=== PATIENT | female | born 1980 | race Caucasian/White ===

== ENCOUNTER 2017-03-22 20:04 | Emergency (ER) | payer SELFPAY ==
[~2017-03-22] VITALS: Ht 160 cm; Wt 63.1 kg
[~2017-03-22 20:04] MED LIST: AMOX500C PO
[2017-03-22 20:19] VITALS: BP 129/79; PULSE 58; RESP 16; TEMP 97.8; O2SAT 99
[2017-03-22 20:45] LABS: BLOOD, URINE SMALL (NEG); GLUCOSE,URINE NEG (NEG); KETONE, URINE NEG (NEG); NITRITE,URINE NEG (NEG)
[2017-03-22 20:53] LABS: URINE COLOR YELLOW (YELLW/STRAW)
[2017-03-22 20:56] LABS: COMMENT (UR) CULT NOT INDICATED; CULTURE IF INDICATED CULT NOT INDICATED; SQUAMOUS EPITHELIAL CELL URINE 0-5 /hpf (0-5)
[2017-03-22] MEDS ORDERED: METR-1 PO (21:19)
[2017-03-22] MEDS ORDERED: MACR100C2 PO (21:19)
--- NOTE | 2017-03-22 21:19 | PD ---
HPI Chief Complaint: Abdominal Pain Time Seen by Provider: 20:41 Travel History International Travel<30 days: No Contact w/Intl Traveler<30days: No Traveled to known affect area: No History of Present Illness HPI Patient is a 37-year-old female presents emergency primary for evaluation of dysuria as well as vaginal discharge for the past 2 weeks. Patient is been gradually worsening. She does relate a history that her boyfriend cheated on her in November and they've gone back together. She states that she did have some mild abdominal cramping but no true pain. She states she's been concerned because symptoms are gradually worsening and she had no primary care physician to follow up with. She has made an appointment with the [facility] for 2 weeks from now. Patient denies any diarrhea nausea or vomiting. Denies any fever. She states that she's had BV several times in the past and thinks that is come back. PFSH Past Medical History Reproductive: Yes (ENDOMETRIOSIS) Tetanus Vaccination: < 5 Years Influenza Vaccination: No ?: Not LMP: 03/09/17 : 1 Miscarriage: 1 Past Surgical History Appendectomy: Yes (1987) Gynecologic Surgery: Yes (TUMOR REMOVED RIGHT FALLOPIAN: 2004 VIA LAPARASCOPY) Social History Alcohol Use: Yes ("MINIMAL, ONCE EVERY 2 WEEKS") Tobacco Use: No (QUIT 2009) Substance Use: No Allergies-Medications (Allergen,Severity, Reaction): Coded Allergies: No Known Allergies (Unverified , 03/22/17) Reported Meds & Prescriptions Reported Meds & Active Scripts Active Flagyl (Metronidazole) 500 Mg Tab 500 Mg PO BID 7 Days Macrobid (Nitrofurantoin Monoh/Nitrofur Macro) 100 Mg Cap 100 Mg PO BID 3 Days Review of Systems Except as stated in HPI: all other systems reviewed are Neg Physical Exam Narrative GENERAL: Well-developed well-nourished no apparent distress SKIN: Focused skin assessment warm/dry. HEAD: Atraumatic. Normocephalic. EYES: Pupils equal and round. No scleral icterus. No injection or drainage. ENT: No nasal bleeding or discharge. Mucous membranes pink and moist. NECK: Trachea midline. No JVD. CARDIOVASCULAR: Regular rate and rhythm. No murmur appreciated. RESPIRATORY: No accessory muscle use. Clear to auscultation. Breath sounds equal bilaterally. GASTROINTESTINAL: Abdomen soft, non-tender, nondistended. Hepatic and splenic margins not palpable. GENITOURINARY: Exam was performed with female nurse pot sander present at all times, there is a small amount of white discharge with a slight tenting Green. No cervical motion tenderness no bimanual tenderness. No lesion internally or externally. MUSCULOSKELETAL: No obvious deformities. No clubbing. No cyanosis. No edema. NEUROLOGICAL: Awake and alert. No obvious cranial nerve deficits. Motor grossly within normal limits. Normal speech. PSYCHIATRIC: Appropriate mood and affect; insight and judgment normal. Data Data Last Documented VS Vital Signs Date Time Temp Pulse Resp B/P Pulse Ox O2 Delivery O2 Flow Rate FiO2 03/22/17 20:19 97.8 58 16 129/79 99 Orders Urinalysis - C+S If Indicated (03/22/17 20:09) Ed Urine Pregnancytest Poc (03/22/17 20:09) Wet Prep Profile (03/22/17 20:57) Gc And Chlamydia Pcr (03/22/17 20:57) Metronidazole (Flagyl) (03/22/17 21:30) Nitrofurantoin Monohyd Macrocr (Macrobid (03/22/17 21:30) Labs Laboratory Tests Test 03/22/17 03/22/17 20:25 20:47 Urine Color YELLOW Urine Turbidity CLEAR Urine pH 7.0 Urine Specific [place] 1.003 Urine Protein NEG mg/dL Urine Glucose (UA) NEG mg/dL Urine Ketones NEG mg/dL Urine Occult Blood SMALL Urine Nitrite NEG Urine Bilirubin NEG Urine Leukocyte Esterase SMALL Urine WBC 3-5 /hpf Urine Squamous Epithelial 0-5 /hpf Cells Microscopic Urinalysis Comment CULT NOT INDICATED Clue Cells (Wet Prep) PRESENT Vaginal Trichomonas (Wet Prep) NONE SEEN Vaginal Yeast (Wet Prep) NONE SEEN MDM Medical Decision Making Medical Screen Exam Complete: Yes Emergency Medical Condition: Yes Differential Diagnosis DVT, CVA, STD, UTI, torsion highly unlikely. Narrative Course Patient was roomed in the emergency department, she appears well in no apparent distress. Her exam is inconsistent with acute abdominal emergency. She does have some white discharge with a slight tint of green. Gonorrhea and chlamydia need consideration and appropriate is been sent. Patient does endorse Sectral activity with a partner who she knows has cheated on her. I discussed with her that her wet prep is positive for clue cells and needs treatment for BV is a minimum. Her UA is negative. Urine test is negative. She does have some dysuria will be covered on Macrobid and Flagyl. She was offered prophylactic treatment for GC and CT but she declines at this time after discussion the risk benefits competitions and alternatives. She will await for test results. [facility] and failing that she has an appointment with the health department as well. She stable for discharge at this time. Diagnosis Primary Impression: BV (bacterial vaginosis) Additional Impression: Dysuria Med/Other Pt SpecificInfo: Prescription(s) given Scripts Metronidazole (Flagyl)500 Mg [id number] Mg PO BID 7 Days Ref 0 Prov:Álvaro Carcamo MD 03/22/17 Nitrofurantoin Monohydrate Macrocrystals (Macrobid)100 Mg [id number] Mg PO BID 3 Days Ref 0 Prov:Álvaro Carcamo MD 03/22/17 Disposition: 01 DISCHARGE HOME Condition: Stable Álvaro Carcamo MD March 22, 2017 21:19
[2017-03-22] MEDS ORDERED: NITROFURANTOIN MONOHYD MACROCR 100 MG CAP PO ONE (21:30)
[2017-03-22] MEDS ORDERED: metroNIDAZOLE 500 MG TAB PO ONE (21:30)
[2017-03-23 01:32] LABS: CHLAMYDIA PCR NOT DETECTED (NOT DETECT); NEISSERIA PCR NOT DETECTED (NOT DETECT)
== END 2017-03-22 21:33 | disposition home or self-care (01) ==
LOC: PHED 20:04
DX: N76.0 Acute vaginitis (principal); R30.0 Dysuria; Z87.891 Personal history of nicotine dependence
CPT/HCPCS: 81001; 84703; 87210; 87491; 87591; 99284

== ENCOUNTER 2017-04-14 09:40 | Emergency (ER) | payer SELFPAY ==
[~2017-04-14] VITALS: Ht 160 cm; Wt 62.0 kg
[~2017-04-14 09:40] MED LIST changes: -AMOX500C PO; +MACR100C2 PO; +METR-1 PO
[2017-04-14 09:44] VITALS: BP 140/87; PULSE 81; RESP 16; TEMP 98; O2SAT 100
[2017-04-14 09:53] LABS: BLOOD, URINE LARGE (NEG); GLUCOSE,URINE NEG (NEG); KETONE, URINE NEG (NEG); NITRITE,URINE NEG (NEG)
--- NOTE | 2017-04-14 09:56 | PD ---
HPI Chief Complaint: Complaint Time Seen by Provider: 09:51 Travel History International Travel<30 days: No Contact w/Intl Traveler<30days: No Traveled to known affect area: No History of Present Illness HPI 37 y/o female presents with blood in her urine and frequency of urine over past couple days. She denies other complaints. She states lmp was a couple days ago. quality is frequent. severity intermittent. PFSH Past Medical History Medical History: Denies Significant Hx Reproductive: Yes (ENDOMETRIOSIS) Immunizations Current: Yes Tetanus Vaccination: Unknown Influenza Vaccination: No ?: Unknown LMP: 04/09/2017 : 1 Miscarriage: 1 Past Surgical History Appendectomy: Yes (1987) Gynecologic Surgery: Yes (TUMOR REMOVED RIGHT FALLOPIAN: 2004 VIA LAPARASCOPY) Social History Alcohol Use: Yes (OCCASIONAL) Tobacco Use: No (QUIT 2009) Substance Use: No Allergies-Medications (Allergen,Severity, Reaction): Coded Allergies: No Known Allergies (Unverified , 04/14/17) Reported Meds & Prescriptions Reported Meds & Active Scripts Active Ciprofloxacin (Ciprofloxacin HCl) 500 Mg Tab 500 Mg PO BID 5 Days Review of Systems Except as stated in HPI: all other systems reviewed are Neg Physical Exam Narrative GENERAL: Well-nourished, well-developed patient. well appearing SKIN: Warm and dry. HEAD: Normocephalic and atraumatic. EYES: No injection or drainage. ENT: No nasal drainage noted. NECK: Supple, trachea midline. CARDIOVASCULAR: Regular rate and rhythm RESPIRATORY: no increased effort. No accessory muscle use. GASTROINTESTINAL: Abdomen soft, non-tender, nondistended. EXTREMITIES: No edema. BACK: Nontender without obvious deformity. no cvat NEUROLOGICAL: Awake and alert. Motor and sensory grossly within normal limits. Normal speech. Data Data Last Documented VS Vital Signs Date Time Temp Pulse Resp B/P Pulse Ox O2 Delivery O2 Flow Rate FiO2 04/14/17 09:44 98.0 81 16 140/87 100 Orders Urinalysis - C+S If Indicated (04/14/17 09:42) Ed Urine Pregnancytest Poc (04/14/17 10:02) Urine Culture (04/14/17 09:46) Labs Laboratory Tests Test 04/14/17 09:46 Urine Collection Type CLEAN CATCH Urine Color YELLOW Urine Turbidity SLIGHT Urine pH 7.0 Urine Specific [place] 1.002 Urine Protein TRACE mg/dL Urine Glucose (UA) NEG mg/dL Urine Ketones NEG mg/dL Urine Occult Blood LARGE Urine Nitrite NEG Urine Bilirubin NEG Urine Leukocyte Esterase MOD Urine RBC 25-49 /hpf Urine WBC 50-99 /hpf Urine WBC Clumps MOD Urine Squamous Epithelial 0-5 /hpf Cells Urine Transitional Epithelial 0-5 /hpf Cells Microscopic Urinalysis Comment CULTURE INDICATED Urine Collection Time 09:46 MDM Medical Decision Making Medical Screen Exam Complete: Yes Emergency Medical Condition: Yes Medical Record Reviewed: Yes ([facility] confirmed) Interpretation(s) ua with uti beta is negative Differential Diagnosis uti, stone, cyst Narrative Course will check ua and reeval ua with uti, beta is negative, Patient denies any new complaints, all questions answered. Patient knows that follow up is incumbent on them and to return to the emergency room immediately if new or worsening symptoms develop. Patient given strict return precautions, vitals reviewed and are normal, agrees to further workup as an outpatient. advised patient to limit sports on antibiotic with tendon risk with antibiotic Diagnosis Primary Impression: UTI (urinary tract infection) Qualified Code: N39.0 - Urinary tract infection with hematuria, site unspecified Patient Instructions: General Instructions Additional Instructions: return as needed, follow with primary monday Med/Other Pt SpecificInfo: Prescription(s) given Scripts Ciprofloxacin 500 Mg [id number] Mg PO BID 5 Days Prov:Margot Sánchez MD 04/14/17 Disposition: 01 DISCHARGE HOME Condition: Stable Margot Sánchez MD Apr 14, 2017 09:56
[2017-04-14 09:59] LABS: METHOD OF COLLECTION CLEAN CATCH
[2017-04-14 10:00] LABS: COMMENT (UR) CULTURE INDICATED; CULTURE IF INDICATED CULTURE INDICATED; SQUAMOUS EPITHELIAL CELL URINE 0-5 /hpf (0-5); TRANSITIONAL EPI CELLS, URINE 0-5 /hpf
[2017-04-14 10:01] LABS: URINE COLOR YELLOW (YELLW/STRAW)
[2017-04-14] MEDS ORDERED: CIPR500T2 PO (10:09)
== END 2017-04-14 10:20 | disposition home or self-care (01) ==
LOC: PHED 09:40
DX: N39.0 Urinary tract infection, site not specified (principal); R31.9 Hematuria, unspecified; Z87.42 Personal history of other diseases of the female genital tract; Z87.891 Personal history of nicotine dependence
CPT/HCPCS: 81001; 84703; 87086; 99283